=== PATIENT | female | born 1950 | race Caucasian/White ===

== ENCOUNTER 2017-08-28 04:48 | Inpatient (IN) ==
[2017-08-22 15:24] LABS: Appearance,Urine HAZY; Bacteria,Urine 0 /hpf (0); Bilirubin,Urine NEG (NEG); Color,Urine YELLOW; Glucose,Urine (UA) NEGATIVE (NEG); Leukocyte Esterase,Urine 250 /uL (NEG); Mucus,Urine FEW /hpf (0); Nitrate,Urine NEG (NEG); Protein,Urine NEG (NEG); Specific Gravity,Urine 1.018 (1.000-1.035); Urine Blood 0.03 mg/dL (<0.03); Urine RBC 3 /hpf (0-1); Urine Squamous Epithelial Cell 3 /hpf (0-4); Urine WBC 5 /hpf (0-4); Urobilinogen,Urine NEG (NEG)
[2017-08-22 16:08] LABS: Basophils # (Auto) 0 K/mcL (0.0-0.3); Basophils % (Auto) 0.5 % (0.0-2.0); Eosinophils # (Auto) 0.3 K/mcL (0.0-0.7); Eosinophils % (Auto) 4.1 % (0.0-7.0); Granulocytes % (Auto) 71.5 % (38.0-78.0); Mean Cell Volume 85.4 fL (80.0-100.0); Mean Corpuscular HGB Conc 33.5 g/dL (31.0-36.0); Mean Corpuscular Hemoglobin 28.6 pg (26.0-34.0); Monocytes # (Auto) 0.5 K/mcL (0.1-0.9); Monocytes % (Auto) 7.9 % (1.0-12.0); Platelet Count 342 K/mcL (140-440); RBC 5.02 M/mcL (4.00-5.20); Red Cell Distribution Width 13.3 % (11.5-14.5)
[2017-08-22 16:17] LABS: Blood Urea Nitrogen 24 mg/dl (8-23)
[2017-08-28] MEDS ORDERED: oxyCODONE 10 MG TAB.ER.12H PO SCH (05:00)
[2017-08-28] MEDS ORDERED: ACETAMINOPHEN 500 MG TABLET PO SCH (05:00)
[2017-08-28] MEDS ORDERED: ceFAZolin 1 GM VIAL IV SCH (05:00)
[2017-08-28] MEDS ORDERED: PREGABALIN 75 MG CAPSULE PO SCH (05:00)
[2017-08-28 06:09] LABS: Appearance,Urine CLEAR; Bacteria,Urine MANY /hpf (0); Bilirubin,Urine NEG (NEG); Color,Urine YELLOW; Glucose,Urine (UA) NEGATIVE (NEG); Leukocyte Esterase,Urine NEG /uL (NEG); Mucus,Urine FEW /hpf (0); Nitrate,Urine POS (NEG); Protein,Urine NEG (NEG); Specific Gravity,Urine 1.016 (1.000-1.035); Urine Blood 0.03 mg/dL (<0.03); Urine RBC 1 /hpf (0-1); Urine Squamous Epithelial Cell 1 /hpf (0-4); Urine Transitional Epi Cells 3 /hpf (0-2); Urine WBC 2 /hpf (0-4); Urobilinogen,Urine NEG (NEG)
[2017-08-28] MEDS ORDERED: KETOROLAC 30 MG, ROPIVACAINE HCL/PF 49.5 ML, EPINEPHrine 0.5 MG, 0.9 % SODIUM CHLORIDE ... IJ SCH (06:30)
[2017-08-28] MEDS ORDERED: GENTAMICIN PER PHARMACY IV ONE (07:17)
[2017-08-28] MEDS ORDERED: GENTAMICIN SULFATE 80 MG in 0.9 % SODIUM CHLORIDE 250 ML IV SCH (07:30)
[2017-08-28] MEDS ORDERED: ONDANSETRON 4 MG/2 ML VIAL IV ONE (07:45)
[2017-08-28] MEDS ORDERED: TRANEXAMIC ACID 1,000 MG/10 ML VIAL IV ONE (07:45)
[2017-08-28] MEDS ORDERED: GLYCOPYRROLATE 0.2 MG/ML VIAL IV ONE (07:45)
[2017-08-28] MEDS ORDERED: MIDAZOLAM 2 MG/2 ML VIAL IV ONE (07:45)
[2017-08-28] MEDS ORDERED: PHENYLEPHRINE 10 MG/ML VIAL IV ONE (07:45)
[2017-08-28] MEDS ORDERED: LIDOCAINE HCL/PF 100 MG/5 ML SYRINGE IV ONE (07:45)
[2017-08-28] MEDS ORDERED: BUPIVACAINE PF 0.5% 30 ML VIAL IJ ONE (07:45)
[2017-08-28] MEDS ORDERED: PROPOFOL 200 MG/20 ML VIAL IV ONE (07:45)
[2017-08-28] MEDS ORDERED: KETAMINE 100 MG/ML ML IV ONE (07:45)
[2017-08-28] MEDS ORDERED: GENTAMICIN SULFATE 800 MG/20 ML VIAL IR ONE (08:15)
[2017-08-28] MEDS ORDERED: ONDANSETRON 4 MG/2 ML VIAL IV PRN (08:50)
[2017-08-28] MEDS ORDERED: METHOCARBAMOL 1,000 MG/10 ML VIAL IV PRN (08:50)
[2017-08-28] MEDS ORDERED: PROMETHAZINE 25 MG/ML VIAL IV PRN (08:50)
[2017-08-28] MEDS ORDERED: IPRATROPIUM/ALBUTEROL 3 ML AMPUL.NEB NEB PRN (08:50)
[2017-08-28] MEDS ORDERED: LACTATED RINGERS 1,000 ML IV SCH (09:00)
[2017-08-28] MEDS ORDERED: ACETAMINOPHEN 325 MG TABLET PO PRN (09:17)
[2017-08-28] MEDS ORDERED: TRANEXAMIC ACID 1,000 MG/10 ML VIAL IV SCH (09:17)
[2017-08-28] MEDS ORDERED: BISACODYL 10 MG SUPP.RECT PR PRN (09:17)
[2017-08-28] MEDS ORDERED: BENZOCAINE/MENTHOL 1 LOZENGE PO PRN (09:17)
[2017-08-28] MEDS ORDERED: POLYETHYLENE GLYCOL 3350 17 GM PACKET PO PRN (09:17)
[2017-08-28] MEDS ORDERED: MAGNESIUM HYDROXIDE 30 ML ORAL.SUSP PO PRN (09:17)
[2017-08-28] MEDS ORDERED: FLEETS ADULT ENEMA PR PRN (09:17)
--- NOTE | 2017-08-28 09:17 | Brief Operative Note ---
Date of procedure: 08/28/17 Pre-op diagnosis: right knee djd with severe valgus Post-op diagnosis: same Procedure: right leda tka with peroneal nerve release Grafts/Implants: Yes Anesthesia: GETA Complications: none Complications Description: 08/28/17 09:16 carolynn Surgeon: Jarett Montelongo Junior Buyer: Gary Valdez Estimated blood loss (cc): 50 Tourniquet Time (Minutes): 55 Specimens Removed/Pathology: none sent Condition: stable Disposition: PACU
[2017-08-28] MEDS: MEPERIDINE 25 MG/ML SYRINGE IV PRN ×2 (09:48→09:54)
--- NOTE | 2017-08-28 10:17 | XRay Report ---
HISTORY: Reason for Exam:Post-Op Total Knee FINDINGS: There is a well-positioned total knee prosthesis. No fracture is present. There is some fluid in the joint along with air in the soft tissues around the joint due to the surgical procedure. IMPRESSION: Well-positioned right knee prosthesis Interpreted and Authenticated by: Mitch Le 08/28/17
--- NOTE | 2017-08-28 10:20 | Operative Note ---
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 PROCEDURE: Right total knee arthroplasty using DOM robot with the peroneal nerve release. SURGEON: Jarett Montelongo MD INSPECTOR FUEL HOSE: Gary Valdez PA-C ESTIMATED BLOOD LOSS: 50 mL TOURNIQUET TIME: 55 minutes. POLICEMAN: Dr. Morris. DESCRIPTION OF PROCEDURE: The patient was brought to the operating room and put to sleep with general LMA anesthesia Once asleep, the patient had the right leg sterilely prepped and draped in the usual sterile fashion. A timeout was performed confirming this was the operative site with x-rays, consent form and initials. Once done, we then proceeded with the knee. We made a midline incision, a mid vastus approach performed. Tranexamic acid and preop antibiotics had been given. We then exposed the joint showing severe valgus malalignment with severe arthritis lateral compartment. The [employer] robot was then assembled and pins placed above and below the knee. We then made an incision and registered 30 points in the joint with medial and lateral malleoli, center of hip rotation and center pins. Once we confirmed the position of everything, we then brought in and balanced the knee to be perfectly straight. We then made our distal femoral cut, made our posterior chamfer cut, exchanged the blade and then made our posterior, anterior and anterior chamfer cuts. Once these were all done, we then performed the tibial cut. Once we registered the tibial intra-articular pin as well as the robot we then made our tibial cut. This tibial piece was removed, preserving the PCL and removing the remnants of the meniscus and posterior spurs. We irrigated thoroughly and then removed the bony fragments, setting rotation, according to the robot, of the tibia. This was tapped into place. We then sized the femur, preserving the PCL and then trialed a 9 and 11 poly, and a 13. The 13 was most appropriate. We did a lateral release of the subperiosteal release of the lateral collateral ligament and popliteus. We irrigated thoroughly. Once this was done, I then balanced the knee perfectly. We irrigated thoroughly and prepared the patella. It measured a total thickness of 14, cut to 14 of the patella and then implanted a patellar poly. We then cemented into place these components after preparing the bone with a pulse lavage and CarboJet. We irrigated and dried the bone and then inserted these implants. Once this was done, we then placed a 13 poly and placed the patellar button. We irrigated thoroughly and put the knee at 45 degrees. At this point, we performed a peroneal nerve release making a 3-inch incision over the fibular head. We then identified the peroneal nerve and tracked it over the fibular head, released any pressure on the fibular head and closed the skin. We irrigated thoroughly and closed the mid vastus approach with two #1 Stratafix sutures. We closed the skin with 0 Vicryl, 2-0 Vicryl and adhesive closure. The patient tolerated this well. There was no complication. RBH:[email or web address] Job ID: [id number] Doc ID: [id number] Jarett Montelongo MD
[2017-08-28] MEDS: HYDROcodone/APAP 10/325MG TABLET PO PRN (12:48)
[2017-08-28] MEDS: KETOROLAC 15 MG/ML VIAL IV SCH ×3 (12:48→23:33)
[2017-08-28] MEDS: 0.45 % SODIUM CHLORIDE 1,000 ML IV SCH ×2 (12:49→20:02)
[2017-08-28] MEDS: HYDROmorphone 2 MG/ML SYRINGE IV PRN ×2 (14:39→22:31)
[2017-08-28] MEDS: 0.9 % SODIUM CHLORIDE 10 ML SYRINGE IV SCH ×2 (14:39→21:49)
[2017-08-28] MEDS: ceFAZolin 1 GM VIAL IV SCH ×2 (15:54→22:32)
[2017-08-28] MEDS: ONDANSETRON 4 MG/2 ML VIAL IV PRN ×2 (17:49→22:31)
[2017-08-28] MEDS: ASPIRIN 325 MG ENTERIC COATED TABLET PO SCH (20:09)
[2017-08-28] MEDS: MAGNESIUM OXIDE 400 MG TABLET PO SCH (20:09)
[2017-08-28] MEDS: DOCUSATE SODIUM 100 MG CAPSULE PO SCH (20:10)
[2017-08-28] MEDS ORDERED: TEMAZEPAM 15 MG CAPSULE PO PRN (21:00)
[2017-08-28] MEDS ORDERED: SENNOSIDES 1 TABLET PO SCH (21:00)
[2017-08-29] MEDS ORDERED: PROMETHAZINE 25 MG/ML VIAL IV ONE (00:04)
[2017-08-29] MEDS ORDERED: PROMETHAZINE 25 MG/ML VIAL ONE (00:26)
[2017-08-29] MEDS: 0.45 % SODIUM CHLORIDE 1,000 ML IV SCH (05:02)
[2017-08-29] MEDS: KETOROLAC 15 MG/ML VIAL IV SCH ×2 (05:28→12:02)
[2017-08-29] MEDS: 0.9 % SODIUM CHLORIDE 10 ML SYRINGE IV SCH ×2 (05:29→12:02)
[2017-08-29] MEDS ORDERED: LEVOTHYROXINE 150 MCG TABLET PO SCH (07:30)
--- NOTE | 2017-08-29 07:33 | Orthopedic Progress Note ---
Subjective Patient information: Note initiated : 08/29/17 at 7:32 am Service Date, if different from initiated Date: [] Patient: Abbie Sims 67 y/o F admitted on 08/28/17 for Right Total Knee Arthroplasty Renny with. Chief Complaint: [Pt is stable this morning on post operative day 1 without any significant concerns or complaints. Patients vital signs have remained stable. Patients dressing is dry and is grossly instact from a neurovascular and motor standpoint. Patients 10 point ROS is otherwise negative. ] Objective Vital signs: Vital Signs Temp Pulse Resp BP Pulse Ox 08/29/17 05:00 97 08/29/17 04:00 98.3 F 84 12 118/67 99 08/29/17 00:16 97.4 F 89 16 104/60 96 08/28/17 23:45 92 08/28/17 23:40 88 L 08/28/17 22:32 98 08/28/17 21:00 97 08/28/17 19:12 97.7 F 65 14 118/73 97 08/28/17 17:00 93 08/28/17 13:25 98.5 F 75 16 109/54 93 08/28/17 13:17 97 08/28/17 12:25 56 L 16 129/76 97 08/28/17 11:55 58 L 16 134/83 94 08/28/17 11:25 59 L 16 125/80 96 08/28/17 11:10 59 L 16 133/83 96 08/28/17 11:03 97 08/28/17 10:55 82 16 131/83 95 08/28/17 10:40 97.0 F 76 16 135/88 95 08/28/17 10:32 98.2 F 72 16 125/96 95 08/28/17 10:23 98.2 F 64 13 131/76 94 08/28/17 10:08 98.2 F 78 13 130/51 94 08/28/17 09:53 98.4 F 72 13 145/98 94 08/28/17 09:38 98.2 F 97 H 13 148/84 96 Intake and Output 08/28/17 08/29/17 08/29/17 21:59 05:59 13:59 Intake Total 1200 / 1200 Output Total 1200 / 1200 325 / 325 Balance -1200 / -1200 875 / 875 Intake: IV 1000 / 1000 Sodium Chloride 0.45% 1,000 ml 1000 / 1000 @ 100 mls/hr IV .Q10H ALVINO Rx#: [id number] Oral 200 / 200 Output: Void Amount 700 / 700 200 / 200 Straight 700 / 700 Emesis 500 / 500 125 / 125 Other: # Voids 1 Weight 232 lb Intake & Output: Intake & Output 08/28/17 08/29/17 08/29/17 21:59 05:59 13:59 Intake Total 1200 / 1200 Output Total 1200 / 1200 325 / 325 Balance -1200 / -1200 875 / 875 Weight 232 lb Intake: IV 1000 / 1000 Sodium Chloride 0.45% 1,000 ml 1000 / 1000 @ 100 mls/hr IV .Q10H ALVINO Rx#: [id number] Oral 200 / 200 Output: Void Amount 700 / 700 200 / 200 Straight 700 / 700 Emesis 500 / 500 125 / 125 Other: # Voids 1 Incision: Yes healing Incision clean and dry: Yes Dressing: Yes clean, Yes dry Weight bearing status: full Neurological exam IM: Yes motor sensory intact, Yes neurovascular intact Extremities exam IM: Yes Foot pink and warm, Yes neurovascular intact - Labs CBC & BMP: 08/29/17 05:09 08/22/17 13:31 Labs: Orthopedic Labs 08/22/17 13:31 PT 13.3 INR 1.0 APTT 32 08/29/17 08/29/17 08/22/17 07:13 05:09 13:31 Hgb 14.4 Hct Pending 35.6 L 42.9 Assessment and Plan (1) Hx of total knee arthroplasty The patient has been educated regarding dressing care, Physical Therapy recommendations, home exercises, restrictions, and follow up appointments. The patient has had all necessary DME prescribed. The patient has remained stable during their hospital course. The patient was discharge with a stable exam. Leave Dermabond patch intact until followup Status: Acute
--- NOTE | 2017-08-29 07:35 | Discharge Summary ---
Ortho Discharge - TKA - Patient Instructions Diet: Regular Diet Activity: activity as tolerated, weight bearing as tolerated Total Knee Protocol: For Total Knee: Start ROM HAY with stationary bike or rocking chair. Work on gaining full extension of knee. Posterior dislocation precautions provided. Hip abductor strengthening and gait training instructions provided. Apply Cryocuff as instructed. Dressing Care: May shower in 2 days Additional Instructions: CPM for home use - Problem Maintenance (1) Hx of total knee arthroplasty Status: Acute - Follow Up Plan Follow Up Appointments: Gary Valdez PA-C [Physician Director Corporate Communications] - 09/12/17 1:10 pm Disposition: Hospice - Home Prognosis: Good Rehab Potential: Good I certify that the patient requires SNF services: No Overall status at discharge: patient is progressing back to baseline - Orders For Discharge Prescriptions: Aspirin [Ecotrin] 325 mg PO BID #60 tab.ec Docusate Sodium [Colace] 100 mg PO BID #60 cap HYDROcodone/APAP 10/325MG [[place] 10/325Mg] 1 - 2 tab PO Q4HP PRN #75 tab PRN Reason: Pain Level 3-6
[2017-08-29] MEDS ORDERED: VITAMIN D3 1,000 UNIT TABLET PO SCH (09:00)
[2017-08-29] MEDS ORDERED: LISINOPRIL 20 MG TABLET PO SCH (09:00)
[2017-08-29] MEDS ORDERED: HYDROCHLOROTHIAZIDE 12.5 MG CAPSULE PO SCH (09:00)
[2017-08-29] MEDS ORDERED: VENLAFAXINE 37.5 MG TAB.ER.24H PO SCH (09:00)
[2017-08-29] MEDS ORDERED: CALCIUM (OYSTER SHELL) 500 MG TABLET PO SCH (09:00)
[2017-08-29] MEDS: MAGNESIUM OXIDE 400 MG TABLET PO SCH (09:05)
[2017-08-29] MEDS: ASPIRIN 325 MG ENTERIC COATED TABLET PO SCH (09:06)
[2017-08-29] MEDS: DOCUSATE SODIUM 100 MG CAPSULE PO SCH (09:06)
[2017-08-29] MEDS: HYDROcodone/APAP 10/325MG TABLET PO PRN (15:28)
== END 2017-08-29 15:57 | disposition hospice, home (50) | DRG 470 ==
LOC: MEDSUR 04:48
PROVIDERS: ADMIT Orthopaedic Surgery; ATTEND Orthopaedic Surgery

== ENCOUNTER 2018-03-05 07:30 | Inpatient (IN) ==
[2018-02-27 11:03] LABS: Appearance,Urine HAZY; Bacteria,Urine FEW /hpf (0); Bilirubin,Urine NEG (NEG); Color,Urine YELLOW; Glucose,Urine (UA) NEGATIVE (NEG); Leukocyte Esterase,Urine 75 /uL (NEG); Mucus,Urine FEW /hpf (0); Protein,Urine NEG (NEG); Specific Gravity,Urine 1.018 (1.000-1.035); Urine Blood 0.2 mg/dL (<0.03); Urine RBC 3 /hpf (0-1); Urine Squamous Epithelial Cell 2 /hpf (0-4); Urine WBC 2 /hpf (0-4); Urobilinogen,Urine NEG (NEG)
[2018-02-27 11:40] LABS: Basophils # (Auto) 0 K/mcL (0.0-0.3); Basophils % (Auto) 0.4 % (0.0-2.0); Eosinophils # (Auto) 0.3 K/mcL (0.0-0.7); Eosinophils % (Auto) 6.2 % (0.0-7.0); Granulocytes % (Auto) 69.5 % (38.0-78.0); Lymphocytes # (Auto) 0.7 K/mcL (1.5-4.8); Lymphocytes % (Auto) 15.7 % (15.5-49.0); Mean Corpuscular HGB Conc 33.1 g/dL (31.0-36.0); Mean Corpuscular Hemoglobin 27.5 pg (26.0-34.0); Monocytes # (Auto) 0.4 K/mcL (0.1-0.9); Monocytes % (Auto) 8.2 % (1.0-12.0); Platelet Count 289 K/mcL (140-440); RBC 4.83 M/mcL (4.00-5.20); Red Cell Distribution Width 17.6 % (11.5-14.5)
[2018-02-27 11:42] LABS: Blood Urea Nitrogen 25 mg/dl (8-23)
[~2018-03-05 07:30] MED LIST: 0.9 % SODIUM CHLORIDE 9 ML, KETOROLAC 30 MG, ROPIVACAINE HCL/PF 49.5 ML, EPINEPHrine 0.... IJ SCH; CELECOXIB 200 MG CAPSULE PO SCH; PREGABALIN 75 MG CAPSULE PO SCH; ceFAZolin 1 GM VIAL IV SCH; oxyCODONE 10 MG TAB.ER.12H PO SCH
[2018-03-05 11:40] LABS: Appearance,Urine CLEAR; Bacteria,Urine 0 /hpf (0); Bilirubin,Urine NEG (NEG); Color,Urine STRAW; Glucose,Urine (UA) NEGATIVE (NEG); Leukocyte Esterase,Urine NEG /uL (NEG); Mucus,Urine FEW /hpf (0); Protein,Urine NEG (NEG); Specific Gravity,Urine 1.012 (1.000-1.035); Urine Blood 0.03 mg/dL (<0.03); Urine RBC 1 /hpf (0-1); Urine Squamous Epithelial Cell < 1 /hpf (0-4); Urine WBC < 1 /hpf (0-4); Urobilinogen,Urine NEG (NEG)
[2018-03-05] MEDS ORDERED: SCOPOLAMINE 1 PATCH PATCH TOPICAL ONE (13:42)
[2018-03-05] MEDS ORDERED: ONDANSETRON 4 MG/2 ML VIAL ONE (14:29)
[2018-03-05] MEDS ORDERED: fentaNYL 250 MCG/5 ML VIAL IV ONE (14:29)
[2018-03-05] MEDS ORDERED: PROPOFOL 200 MG/20 ML VIAL IV ONE (14:29)
[2018-03-05] MEDS ORDERED: MIDAZOLAM 5 MG/5 ML VIAL ONE (14:29)
[2018-03-05] MEDS ORDERED: DEXAMETHASONE 10 MG/ML VIAL ONE (14:29)
[2018-03-05] MEDS ORDERED: SUCCINYLCHOLINE 20 MG/ML ML IV ONE (14:29)
[2018-03-05] MEDS ORDERED: LIDOCAINE HCL/PF 100 MG/5 ML SYRINGE IV ONE (14:29)
[2018-03-05] MEDS ORDERED: PROMETHAZINE 25 MG/ML VIAL ONE (14:29)
[2018-03-05] MEDS ORDERED: GENTAMICIN SULFATE 800 MG/20 ML VIAL IR ONE (15:12)
[2018-03-05] MEDS ORDERED: HYDROmorphone 2 MG/ML VIAL IV PRN (15:52)
[2018-03-05] MEDS ORDERED: TEMAZEPAM 15 MG CAPSULE PO PRN (15:52)
[2018-03-05] MEDS ORDERED: MAGNESIUM HYDROXIDE 30 ML ORAL.SUSP PO PRN (15:52)
[2018-03-05] MEDS ORDERED: ONDANSETRON 4 MG/2 ML VIAL IV PRN (15:52)
[2018-03-05] MEDS ORDERED: BISACODYL 10 MG SUPP.RECT PR PRN (15:52)
[2018-03-05] MEDS ORDERED: POLYETHYLENE GLYCOL 3350 17 GM PACKET PO PRN (15:52)
[2018-03-05] MEDS ORDERED: ACETAMINOPHEN 325 MG TABLET PO PRN (15:52)
[2018-03-05] MEDS ORDERED: FLEETS ADULT ENEMA PR PRN (15:52)
[2018-03-05] MEDS ORDERED: TRANEXAMIC ACID 1,000 MG/10 ML VIAL IV ONE (15:52)
[2018-03-05] MEDS ORDERED: BENZOCAINE/MENTHOL 1 LOZENGE PO PRN (15:52)
--- NOTE | 2018-03-05 15:52 | Brief Operative Note ---
Date of procedure: 03/05/18 Pre-op diagnosis: left knee severe djd Post-op diagnosis: same Procedure: left robotic tka Grafts/Implants: Yes Anesthesia: GETA Complications: none Complications Description: 03/05/18 15:51 none Surgeon: Jarett Montelongo Plant Science Professor: Krishna Delgado Estimated blood loss (cc): 20 Tourniquet Time (Minutes): 42 Specimens Removed/Pathology: none sent Condition: stable Disposition: PACU
--- NOTE | 2018-03-05 16:38 | Operative Note ---
DATE OF OPERATION: 03/05/2018 PREOPERATIVE DIAGNOSIS: Left knee degenerative arthritis. POSTOPERATIVE DIAGNOSIS: Left knee degenerative arthritis. PROCEDURE: Left total knee arthroplasty. SURGEON: Jarett Montelongo M.D. PUNCHING MACHINE OPERATOR: Krishna Delgado PA-C. ANESTHESIA: General LMA anesthesia by An Le CRNA. TOURNIQUET TIME: 42 minutes. IMPLANTS PLACED: Per nurse's note. These were cemented [place] components with an 11 mm poly and a 33 mm patellar button. DESCRIPTION OF PROCEDURE: The patient was brought to the operating room, put to sleep with general LMA anesthesia. Once asleep, the patient had the left leg sterilely prepped and draped in the usual sterile fashion. We confirmed this as the operative site. Preop antibiotics and tranexamic acid had been given. Once this had been confirmed, the patient does note that she had valgus malalignment, which she did. The lateral compartment was severely worn. At this point, we proceeded with a total knee arthroplasty using the [employer] robot. Two pins above and below the knee were placed. We registered the center of hip rotation, medial and lateral malleoli were registered, intraarticular pins. We then balanced the knee at 90 and 15 degrees. Once perfectly balanced using the robot software, we then brought the robot in and made the cuts as preplanned, both on the femur and the tibia. The tibial baseplate was set with its rotation according to the robot and then we removed spurs posteriorly. We did our postoperative injection. We then punched into place the trials, femur, baseplate. This fit very nicely with an 11 mm poly matching her anatomy and tension. We irrigated thoroughly and then prepared the patella. It measured at 21 mm. This was cut to 13 mm, and a 33 mm patellar button was used. This was put into place and it covered nicely. We irrigated thoroughly and then cemented into place the components after preparing the bone with pulse lavage and CarboJet to clean the bone. The bone penetration of the cement was excellent. All the components were put into place with an 11 mm poly and a 33 mm patellar button. We removed excess cement and any debris. After thorough irrigation, we kept the knee at 45 degrees until all the cement was dry and then inspected once more. We deflated the tourniquet at 42 minutes and closed the capsule with a #1 Stratafix x2 sutures. Excellent closure was achieved. We irrigated thoroughly and closed the skin with 3-0 Monocryl and adhesive closure. Portals were closed with 4-0 nylon. The patient tolerated this well without complication. Sterile bandage was applied. GLADYS:[email or web address] angel Job ID: [id number] Doc ID: [id number] Jarett Montelongo MD
[2018-03-05] MEDS ORDERED: METHOCARBAMOL 1,000 MG/10 ML VIAL IV ONE (16:46)
--- NOTE | 2018-03-05 16:59 | XRay Report ---
HISTORY: ITS.REASON: Post-Op Total Knee FINDINGS: There is a well positioned total knee prosthesis. On the AP view there is a suggestion of a fracture involving the lateral femoral epicondyle. A preoperative x-ray is not available for comparison at this time. There is gas in soft tissues and fluid in the joint due to the surgical procedure. IMPRESSION: Possible fracture of the lateral femoral epicondyle. Repeat AP and oblique images would be recommended. Interpreted and Authenticated by: Mitch Le 03/05/18
[2018-03-05] MEDS: 0.45 % SODIUM CHLORIDE 1,000 ML IV SCH (17:57)
[2018-03-05] MEDS: KETOROLAC 15 MG/ML VIAL IV SCH (18:33)
[2018-03-05] MEDS: HYDROcodone/APAP 10/325MG TABLET PO PRN (20:11)
[2018-03-05] MEDS: ASPIRIN 325 MG ENTERIC COATED TABLET PO SCH (20:11)
[2018-03-05] MEDS: DOCUSATE SODIUM 100 MG CAPSULE PO SCH (20:11)
[2018-03-05] MEDS: APIXABAN 5 MG TABLET PO SCH (20:11)
[2018-03-05] MEDS: CYCLOBENZAPRINE 10 MG TABLET PO SCH (20:12)
[2018-03-05] MEDS: 0.9 % SODIUM CHLORIDE 10 ML SYRINGE IV SCH (20:12)
[2018-03-05] MEDS ORDERED: SENNOSIDES 1 TABLET PO SCH (21:00)
[2018-03-06] MEDS: KETOROLAC 15 MG/ML VIAL IV SCH ×3 (00:15→12:44)
[2018-03-06] MEDS: 0.45 % SODIUM CHLORIDE 1,000 ML IV SCH ×2 (03:37→12:47)
[2018-03-06] MEDS: 0.9 % SODIUM CHLORIDE 10 ML SYRINGE IV SCH ×2 (05:51→14:00)
[2018-03-06] MEDS ORDERED: LEVOTHYROXINE 150 MCG TABLET PO SCH (07:30)
--- NOTE | 2018-03-06 07:49 | Discharge Summary ---
Ortho Discharge - TKA - Patient Instructions Diet: Regular Diet Activity: activity as tolerated, weight bearing as tolerated Total Knee Protocol: For Total Knee: Start ROM HAY with stationary bike or rocking chair. Work on gaining full extension of knee. Posterior dislocation precautions provided. Hip abductor strengthening and gait training instructions provided. Apply Cryocuff as instructed. Dressing Care: May shower in 2 days, Aquacel Ag - leave on for 5 days - Follow Up Plan Follow Up Appointments: Gary Valdez PA-C [Physician Apricot Packer] - 03/20/18 11:20 am Disposition: Home, Self-Care Prognosis: Good Rehab Potential: Good I certify that the patient requires SNF services: No Overall status at discharge: patient is progressing back to baseline - Orders For Discharge Prescriptions: HYDROcodone/APAP 10/325MG [[place] 10-325Mg] 10 - 20 mg PO Q4HP PRN #60 tab PRN Reason: Pain Level 3-6 Additional Discharge Orders: Physical Therapy at Discharge - TKA Location: None Selected CPM Discharge Order Location: None Selected Toilet Riser Discharge Order Location: None Selected Walker Location: None Selected
[2018-03-06] MEDS: ASPIRIN 325 MG ENTERIC COATED TABLET PO SCH (08:36)
[2018-03-06] MEDS: APIXABAN 5 MG TABLET PO SCH (08:36)
[2018-03-06] MEDS: DOCUSATE SODIUM 100 MG CAPSULE PO SCH (08:36)
[2018-03-06] MEDS: HYDROcodone/APAP 10/325MG TABLET PO PRN ×2 (08:37→12:45)
[2018-03-06] MEDS: CYCLOBENZAPRINE 10 MG TABLET PO SCH (08:37)
[2018-03-06] MEDS ORDERED: VENLAFAXINE 75 MG CAP.XL.24H PO SCH (09:00)
[2018-03-06] MEDS ORDERED: VITAMIN D3 1,000 UNIT TABLET PO SCH (09:00)
[2018-03-06] MEDS ORDERED: LISINOPRIL/HCTZ 20/12.5MG TABLET PO SCH (09:00)
[2018-03-06] MEDS ORDERED: HYDROCHLOROTHIAZIDE 12.5 MG CAPSULE PO SCH (09:00)
[2018-03-06] MEDS ORDERED: LISINOPRIL 20 MG TABLET PO SCH (09:00)
[2018-03-06] MEDS ORDERED: CALCIUM (OYSTER SHELL) 500 MG TABLET PO SCH (09:00)
[2018-03-06] MEDS ORDERED: ALBUTEROL SULFATE 1 PUFF INHALER INH PRN (09:03)
== END 2018-03-06 15:05 | disposition home or self-care (01) | DRG 470 ==
LOC: MEDSUR 10:28
PROVIDERS: ADMIT Orthopaedic Surgery; ATTEND Orthopaedic Surgery